=== PATIENT | female | born 1970 | race Asian ===

== ENCOUNTER 2017-09-07 22:00 | Emergency (ER) | payer BC, OTHER ==
[2017-09-07] MEDS ORDERED: ASPIRIN 81 MG CHEWABLE TABLETS PO ONE (22:05)
--- NOTE | 2017-09-07 22:06 | PDOC ---
Rapid Medical Evaluation Chief Complaint: Chest Pain Time Seen by Provider: 09/07/17 22:06 Medical Evaluation: Allergies Allergy/AdvReac Type Severity Reaction Status Date / Time kiwi Allergy Swelling Verified 11/24/14 12:24 pineapple Allergy Swelling Verified 11/24/14 12:24 09/07/17 22:04 c/o chest pain x 40 mins. pain radiating to neck and throat. history of mitral valve prolapse PE: Patient alert ox3. A: chest paIN P; cbc cmp cardiac chest PA and lateral patient to the ER for further management of care. Discharge Disposition - Referrals Referrals: Jamshid Laureano MD [Primary Care Provider] - - Patient Instructions - Post Discharge Activity
[2017-09-07 22:07] VITALS: TEMP 98.2; BMI 24.1
--- NOTE | 2017-09-07 22:17 | PDOC ---
History of Present Illness - General Chief Complaint: Chest Pain Stated Complaint: CHEST PAIN Time Seen by Provider: 09/07/17 22:06 - History of Present Illness Initial Comments: 47 year old female with history of MVP presenting with chest pain since 14:00 today. States that the pain is an intermittent tightness, non-exertional, radiates to her neck bilaterally, and is relieved by a deep breath. She has never had this pressure before. She denies nausea, vomiting, diarrhea, constipation, SOB, headache, or other symptoms. Her PCP is affiliated with [facility] and her ethanol maintenance mechanic is Dr. Saul May. 09/07/17 23:08 Past History - Past Medical History Allergies/Adverse Reactions: Allergies Allergy/AdvReac Type Severity Reaction Status Date / Time kiwi Allergy Swelling Verified 09/07/17 22:07 pineapple Allergy Swelling Verified 09/07/17 22:07 Home Medications: Ambulatory Orders Famotidine [Pepcid -] 20 mg PO DAILY #14 tablet 09/08/17 COPD: No - Suicide/Smoking/Psychosocial Hx Smoking History: Never smoked Have you smoked in the past 12 months: No Information on smoking cessation initiated: No Hx Alcohol Use: No Drug/Substance Use Hx: No Substance Use Type: None Review of Systems - Review of Systems Constitutional: No: Chills, Diaphoresis, Fever HEENTM: No: Blurred Vision, Recent change in vision, Double Vision Respiratory: No: Cough, Shortness of Breath, Wheezing Cardiac (ROS): Yes: Chest Tightness. No: Irregular Heart Rate, Lightheadedness , Palpitations, Syncope ABD/GI: No: Constipated, Diarrhea, Nausea, Vomiting : No: Burning, Dysuria, Discharge, Incontinence Musculoskeletal: No: Muscle Pain, Muscle Weakness Integumentary: No: Bruising, Erythema, Flushing, Lesions Neurological: No: Headache, Numbness, Paresthesia *Physical Exam - Vital Signs Last Vital Signs Temp Pulse Resp BP Pulse Ox 98.2 F 105 H 18 139/88 100 09/07/17 22:05 09/07/17 22:05 09/07/17 22:05 09/07/17 22:05 09/07/17 22:05 - Physical Exam General Appearance: Yes: Nourished, Appropriately Dressed. No: Apparent Distress HEENT: positive: EOMI, RUSS, Normal ENT Inspection, Normal Voice Neck: positive: Trachea midline, Normal Thyroid, Supple. negative: Tender, Rigid Respiratory/Chest: positive: Lungs Clear, Normal Breath Sounds. negative: Chest Tender, Respiratory Distress, Accessory Muscle Use Cardiovascular: positive: Regular Rhythm, Regular Rate Gastrointestinal/Abdominal: positive: Normal Bowel Sounds, Flat, Soft. negative : Tender Lymphatic: positive: Tenderness. negative: Adenopathy Musculoskeletal: positive: Normal Inspection. negative: Decreased Range of Motion Extremity: positive: Normal Capillary Refill, Normal Inspection, Pelvis Stable. negative: Normal Range of Motion, Tender Integumentary: positive: Normal Color, Dry, Warm Neurologic: positive: chapter relations administrator II-XII NML intact, Fully Oriented, Alert, Normal Mood/ Affect, Normal Response, Motor Strength 07/22 ED Treatment Course - LABORATORY CBC & Chemistry Diagram: 09/07/17 23:20 09/07/17 23:20 Medical Decision Making - Medical Decision Making 47 year old female with PMH of MVP presenting with chest pain with sour taste in her mouth. Less likely cardiac related but given history will have to rule out with troponin x 2. Patient signed out to Dr. Luu for continued cardiac monitoring and blood work. *DC/Admit/Observation/Transfer Diagnosis at time of Disposition: Atypical chest pain - Discharge Dispostion Disposition: HOME Condition at time of disposition: Stable - Prescriptions Prescriptions: Famotidine [Pepcid -] 20 mg PO DAILY #14 tablet - Referrals Referrals: Saul May MD [Staff Physician] - Fabrizio Guallpa MD [Staff Physician] - Jamshid Laureano MD [Primary Care Provider] - - Patient Instructions Printed Discharge Instructions: DI for Chest Pain Additional Instructions: Please make an appointment to see your PMD. Please also follow up with the ethanol maintenance mechanic and the podiatry doctor. Please return to the ED with any further concerns or complaints. - Post Discharge Activity
[2017-09-07] MEDS ORDERED: MAG HYDROX/AL HYDROX/SIMETH 30 ML UNIT-DOSE CUP PO ONE (23:09)
[2017-09-07] MEDS ORDERED: FAMOTIDINE 20 MG/50 ML IVPB 20 MG/50 ML MG IVPB ONE ×2 (23:09→23:14)
[2017-09-07] MEDS ORDERED: ASPIRIN 81 MG CHEWABLE TABLETS ONE (23:14)
[2017-09-07] MEDS ORDERED: MAG HYDROX/AL HYDROX/SIMETH 30 ML UNIT-DOSE CUP ONE (23:14)
[2017-09-07 23:27] LABS: BASO % 0.8 % (0-2.0); HEMATOCRIT 38.1 % (32.4-45.2); HEMOGLOBIN 12.7 GM/dL (10.7-15.3); LYMPH % 26.5 % (8-40); MCH 28.1 pg (25.7-33.7); MCHC 33.3 g/dl (32.0-36.0); MEAN CELL VOLUME 84.4 fl (80-96); MEAN PLT VOLUME 8.7 fl (7.5-11.1); MONO % 6.3 % (3.8-10.2); NEUT % 62.4 % (42.8-82.8); PLATELET COUNT 274 K/MM3 (134-434); RBC 4.51 M/mm3 (3.60-5.2); RDW 13.4 % (11.6-15.6); WHITE BLOOD COUNT 7.2 K/mm3 (4.0-10.0)
[2017-09-07 23:45] LABS: INR 0.92 (0.82-1.09); PROTHROMBIN TIME (PATIENT) 10.4 SEC (9.7-13.0)
[2017-09-07 23:55] LABS: ALBUMIN 3.4 g/dl (3.4-5.0); ANION GAP 8 (8-16); BILIRUBIN,TOTAL 0.2 mg/dL (0.2-1.0); BLOOD UREA NITROGEN 15 mg/dL (7-18); CALCIUM 8.7 mg/dL (8.5-10.1); CHLORIDE 105 mmol/L (98-107); CO2 26 mmol/L (21-32); CREATININE 0.8 mg/dL (0.55-1.02); GLUCOSE,RANDOM 112 mg/dL (74-106); MAGNESIUM 1.9 mg/dL (1.8-2.4); POTASSIUM 4.4 mmol/L (3.5-5.1); SGOT/AST 12 U/L (15-37); SGPT/ALT 25 U/L (12-78); SODIUM 139 mmol/L (136-145); TOT PROT 7.5 g/dl (6.4-8.2)
[2017-09-07 23:57] LABS: ALK PHOS 69 U/L (45-117)
--- NOTE | 2017-09-08 00:23 | PDOC ---
Attending Attestation - HPI HPI: 09/08/17 00:33 The patient is a 47 year old female with a significant PMH of mitral valve prolapse who presents to the emergency department with chest discomfort since 9 :00 PM today. The patient states the chest discomfort is intermittent with an associated sour taste in her mouth and a burning sensation that goes up her throat. The patient denies eating anything prior to the onset of her chest discomfort. Patient denies having similar chest discomfort in the past. The patient denies shortness of breath, chest pain, diaphoresis, headache, dizziness, leg swelling or calf pain. Denies fever, chills, nausea, vomit, diarrhea and constipation. Denies dysuria, frequency, urgency and hematuria. Allergies: NKA Past surgical history: None reported. Social history: No reported alcohol, drug, or cigarette use. PCP: Dr. Wyman Kitchen Work Supervisor: Dr. May - Physicial Exam PE: 09/08/17 00:34 ADULT PHYSICAL EXAM Constitutional: Awake, alert, oriented. No acute distress. Head: Normocephalic. Atraumatic Eyes: PERRL. EOMI. Conjunctivae are not pale. ENT: Mucous membranes are moist and intact. Posterior pharynx without exudates or erythema. Uvula midline. Neck: Supple. Full ROM. No lymphadenopathy. Cardiovascular: Regular rate. Regular rhythm. S1, S2 regular. Distal pulses are 2+ and symmetric. Pulmonary/Chest: No evidence of respiratory distress. Clear to auscultation bilaterally No wheezing, rales or rhonchi. Abdominal: Soft and non-distended. There is no tenderness. No rebound, guarding or rigidity. No organomegaly. No palpable masses. Good bowel sounds. Back: No CVA tenderness. Musculoskeletal: No edema. No cyanosis. No clubbing. Full range of motion in all extremities. Nocalf tenderness. Radial/pedal pulses are intact and 2+ bilaterally Skin: Skin is warm and dry. No petechiae. No purpura. Neurological: Alert and oriented to person, place, and time. Cranial nerves II -XII are grossly intact. Normal speech. Strength is grossly symmetric. No sensory deficits. Psychiatric: Good eye contact. Normal interaction, affect and behavior. <Kristi Seals - Last Filed: 09/08/17 00:33> - Resident Resident Name: Corry Mejias - ED Attending Attestation I have performed the following: I have examined & evaluated the patient, The case was reviewed & discussed with the resident, I agree w/resident's findings & plan, Exceptions are as noted - Medical Decision Making 09/08/17 00:23 I, Dr. Brittney Luu, DO, attest that this document has been prepared under my direction and personally reviewed by me in its entirety. I further attest, that it accurately reflects all work, treatment, procedures and medical decision -making performed by me. 09/08/17 00:31 a/p: 47yo female with cp that radiates up her chest to her throat -burning sensation/tightness/assoc with sour taste in mouth -pt tachy upon arrival -no pleuritic component -no calf ttp or leg swelling -will send labs, ekg, tsh, cxr -will monitor and reassess -will medicate 09/08/17 00:35 pt with elevated TSH - will send free t4 pain improved at this time will repeat trop 09/08/17 01:56 cxr clear discussed imaging results will repeat trop at 230a 09/08/17 01:56 free t4 wnl pt will be signed out to the oncoming ED physician pending repeat trop <Brittney Luu - Last Filed: 09/08/17 02:02> Discharge Disposition <Kristi Seals - Last Filed: 09/08/17 00:33> - Discharge Dispostion Decision to Admit order: No <Brittney Luu - Last Filed: 09/08/17 02:02> - Diagnosis Atypical chest pain - Discharge Dispostion Condition at time of disposition: Stable - Prescriptions Prescriptions: Famotidine [Pepcid -] 20 mg PO DAILY #14 tablet - Referrals Referrals: Fabrizio Guallpa MD [Staff Physician] - Jamshid Laureano MD [Primary Care Provider] - Saul May MD [Staff Physician] - - Patient Instructions Printed Discharge Instructions: DI for Chest Pain Additional Instructions: Please make an appointment to see your PMD. Please also follow up with the research associate policy and the operations scheduler. Please return to the ED with any further concerns or complaints. - Post Discharge Activity Heart Score/ECG Review - ECG Intrepretation Comment:: 09/08/17 00:31 sinus at 98, nl axis, nl interval, no acute st/t wave findings <Brittney Luu - Last Filed: 09/08/17 02:02>
[2017-09-08] MEDS ORDERED: ACETAMINOPHEN 325 MG TABLET (FP) PO ONE (01:58)
[2017-09-08] MEDS ORDERED: ACETAMINOPHEN 325 MG TABLET (FP) ONE (02:03)
[2017-09-08 03:15] VITALS: BP 132/79; PULSE 80
--- NOTE | 2017-09-11 22:08 | EKG ---
Test Reason : Blood Pressure : / mmHG Vent. Rate : 098 BPM Atrial Rate : 098 BPM P-R Int : 146 ms QRS Dur : 078 ms QT Int : 342 ms P-R-T Axes : 065 063 053 degrees QTc Int : 436 ms NORMAL SINUS RHYTHM LOW VOLTAGE QRS BORDERLINE ECG WHEN COMPARED WITH ECG OF 24-NOV-2014 12:38, NO SIGNIFICANT CHANGE WAS FOUND Confirmed by WARNER CISNEROS MD ([id number]) on 09/11/2017 10:08:31 PM Referred By: Confirmed By:WARNER CISNEROS MD
== END 2017-09-08 03:15 | disposition home or self-care (01) ==
LOC: JER 22:00
PROC: 3E033GC Introduction of Other Therapeutic Substance into Peripheral Vein, Percutaneous Approach (ICD-10-PCS; principal; 2017-09-07)
DX: R07.89 Other chest pain (principal); I34.1 Nonrheumatic mitral (valve) prolapse
CPT/HCPCS: 36415; 71046-TC-FY; 80053; 82550; 83735; 84439; 84443; 84484; 85025; 85610; 93005; 93010; 99283-25

== ENCOUNTER 2018-06-13 05:05 | Inpatient (IN) | payer BC ==
[2018-06-12 10:20] VITALS: BMI 23.3
[2018-06-13] MEDS ORDERED: BUPIVACAINE HCL/PF 0.5% (5MG/ML) 10 ML VIAL ONE (07:38)
--- NOTE | 2018-06-13 07:54 | HP ---
History & Physical Update - Physical Physical: No Change - Assessment Assessment: No Change - Plan Plan: No Change (H&P reviwed , no changes, for supracervical abdominal hysterectomy, bilatearl salpingectomy)
[2018-06-13] MEDS ORDERED: MIDAZOLAM HCL 2 MG/2 ML SINGLE DOSE VIAL ONE ×3 (08:40→08:48)
[2018-06-13] MEDS ORDERED: DEXAMETHASONE SOD PHOSPHATE 4 MG/1 ML VIAL ONE ×2 (08:55→09:42)
[2018-06-13] MEDS ORDERED: LIDOCAINE HCL/PF 2% SDV 5ML VIAL ONE ×2 (08:55→09:42)
[2018-06-13] MEDS ORDERED: PROPOFOL 20 ML ONE ×3 (08:56→09:43)
[2018-06-13] MEDS ORDERED: ROCURONIUM BROMIDE 50 MG/5 ML VIAL ONE ×2 (08:56→09:43)
[2018-06-13] MEDS ORDERED: ceFAZolin SODIUM 1 GM VIAL IVPB ONE (09:25)
[2018-06-13] MEDS ORDERED: ceFAZolin SODIUM 1 GM VIAL ONE ×2 (09:34→09:46)
[2018-06-13] MEDS ORDERED: KETOROLAC TROMETHAMINE 30 MG/1 ML VIAL ONE ×2 (09:42→09:46)
[2018-06-13] MEDS ORDERED: NEOSTIGMINE METHYLSULFATE 0.5 MG/ML - 10 ML MDV ONE (09:44)
[2018-06-13] MEDS ORDERED: PHENYLEPHRINE HCL 10 MG/1 ML SINGLE DOSE VIAL ONE (09:44)
[2018-06-13] MEDS ORDERED: GLYCOPYRROLATE 0.2 MG/1 ML VIAL ONE (09:45)
[2018-06-13] MEDS ORDERED: SODIUM CHLORIDE 0.9% P/F 10 ML VIAL IJ ONE (09:46)
[2018-06-13] MEDS ORDERED: oxyCODONE HCL 5 MG TABLET PO PRN ×2 (11:12→11:17)
[2018-06-13] MEDS ORDERED: IBUPROFEN 800 MG/8 ML IJ IVPB PRN (11:12)
[2018-06-13] MEDS ORDERED: IBUPROFEN 600 MG TABLET (FP) PO PRN (11:12)
[2018-06-13] MEDS ORDERED: ELECTROLYTE-148 SOLN 1,000 ML IV SCH (11:15)
[2018-06-13] MEDS ORDERED: BISACODYL 10 MG SUPP.RECT RC PRN (11:15)
[2018-06-13] MEDS ORDERED: ONDANSETRON 4 MG/2 ML VIAL IVPUSH PRN (11:25)
[2018-06-13] MEDS ORDERED: DESFLURANE GAS 240 ML BOTTLE IH ONE (11:29)
[2018-06-13] MEDS ORDERED: OXYTOCIN 15 UNITS/ LR 250 ML 250 ML IVPB SCH (11:30)
[2018-06-13] MEDS ORDERED: LACTATED RINGERS SOLUTION 1,000 ML IV SCH (11:30)
--- NOTE | 2018-06-13 12:37 | OP ---
DATE OF OPERATION: 06/13/2018 PREOPERATIVE DIAGNOSIS: Menometrorrhagia, pelvic pain, fibroid uterus. POSTOPERATIVE DIAGNOSIS: Menometrorrhagia, pelvic pain, fibroid uterus. PROCEDURE: Supracervical abdominal hysterectomy, bilateral salpingectomy, and right ovarian cystectomy. SURGEON: eLnny Thompson M.D. PAINTING WORKER: Eamon Scott M.D. ANESTHESIA: General. ANESTHESIOLOGIST: Marcio Bocanegra M.D. ESTIMATED BLOOD LOSS: 150 mL. DESCRIPTION OF THE PROCEDURE: The patient was taken to the operating room under adequate general anesthesia. In the supine position the abdomen and perineum were prepped and draped and a Pfannenstiel abdominal skin incision was made. The abdominal wall was cut layer by layer until the peritoneum was exposed and incised. Upon entering the abdominal cavity the lower uterine segment was identified and the upper abdomen was checked. Bowels were packed away. The uterus was enlarged with multiple myomas and bulky. The bladder was normal and the right ovary had a 3-cm corpus luteum cyst which was oozing. At this time a Tiff clamp was applied at the base of the cyst and then with the cautery the cyst was removed and then the ovary was sutured with 3-0 Vicryl interrupted suture. Hemostasis was established then. Both of the tubes were normal, ovaries were normal, bladder was normal, and the cul-de-sac was free of adhesions. The round ligament was grasped with a bipolar LigaSure cautery cauterized and cut until the leaf of the broad ligament was opened and the bladder was pushed down. Then after the pedicles were identified and clamped with a Kaveh clamp and cut and the clamp replaced with 0-Vicryl ties bilaterally. At this time the bladder was further pushed down. The uterine artery was identified bilaterally, and clamped with Kaveh clamp, cut, and the clamp replaced 0 Vicryl suture bilaterally. The paracervical area was clamped with Kaveh clamp, cut, and the clamp replaced with 0 Vicryl suture bilaterally. Then the specimen was removed above the cervix and then the cervix was sutured with an interrupted suture of 0 Vicryl suture. Then reperitonealization of the appendix floor was done with 3-0 Vicryl continuous suture. The pelvic cavity was then irrigated and no active bleeding was seen. Both ovaries were checked and were normal. Then all the lap, sponge, and instrument counts were correct. Urine was clear. Then the peritoneum was closed with 0 Vicryl continuous suture. The muscles were brought together with an interrupted suture of 0 Vicryl, the fascia was closed with 0 Vicryl continuous sutures, the subcutaneous fat with interrupted suture of 0 Vicryl, and the skin was closed with 4-0 Biosyn subcuticular continuous suture. The patient tolerated the procedure well and left the OR in good condition. Fermín [id number]
[2018-06-13] MEDS ORDERED: ACETAMINOPHEN 1000 MG/100 ML VIAL (NON FORMULARY) IVPB ONE (12:38)
[2018-06-13] MEDS ORDERED: HYDROmorphone *PCA* 10MG/50ML DISP.SYRIN PCA ONE (12:38)
[2018-06-13] MEDS ORDERED: HYDROmorphone *PCA* 10MG/50ML DISP.SYRIN PCA SCH (12:45)
[2018-06-13] MEDS: DEXTROSE 5%-LACTATED RINGERS 1,000 ML IV SCH (16:00)
[2018-06-13] MEDS: ONDANSETRON 4 MG/2 ML VIAL IVPUSH PRN (16:58)
[2018-06-13] MEDS: CEFAZOLIN 1 GM/D5W 1 GM/50 ML BAG IVPB SCH (17:42)
[2018-06-14] MEDS: CEFAZOLIN 1 GM/D5W 1 GM/50 ML BAG IVPB SCH ×2 (01:12→09:04)
[2018-06-14] MEDS: DEXTROSE 5%-LACTATED RINGERS 1,000 ML IV SCH ×3 (01:16→17:30)
[2018-06-14] MEDS: ONDANSETRON 4 MG/2 ML VIAL IVPUSH PRN ×2 (04:09→10:23)
[2018-06-14 07:55] LABS: ANION GAP 6 MMOL/L (8-16); BLOOD UREA NITROGEN 9 mg/dL (7-18); CALCIUM 7.3 mg/dL (8.5-10.1); CHLORIDE 103 mmol/L (98-107); CO2 28 mmol/L (21-32); CREATININE 0.6 mg/dL (0.55-1.3); GLUCOSE,RANDOM 127 mg/dL (74-106); POTASSIUM 4.1 mmol/L (3.5-5.1); SODIUM 138 mmol/L (136-145)
[2018-06-14 08:02] LABS: BASO % 0.1 % (0-2.0); EOS % 0.1 % (0-4.5); HEMATOCRIT 31.9 % (32.4-45.2); HEMOGLOBIN 10.4 GM/dL (10.7-15.3); LYMPH % 7.2 % (8-40); MCH 27.3 pg (25.7-33.7); MCHC 32.6 g/dl (32.0-36.0); MEAN CELL VOLUME 83.7 fl (80-96); MONO % 6.8 % (3.8-10.2); NEUT % 85.8 % (42.8-82.8); PLATELET COUNT 199 K/MM3 (134-434); RBC 3.81 M/mm3 (3.60-5.2); RDW 13.8 % (11.6-15.6)
[2018-06-14] MEDS ORDERED: ACETAMINOPHEN 325 MG TABLET (FP) PO PRN (08:11)
[2018-06-14] MEDS ORDERED: SIMETHICONE 80 MG TAB.CHEW (FP) PO PRN (08:12)
--- NOTE | 2018-06-14 08:35 | PN ---
Progress Note (short form) - Note Progress Note: pod 1, s/p supracervical abdominal hysterectomy, had one episode of vomiting last night, feels fine now CBC, BMP 06/14/18 06:30 06/14/18 06:30 Last Vital Signs Temp Pulse Resp BP Pulse Ox 98.4 F 106 H 20 125/72 100 06/14/18 06:00 06/14/18 06:00 06/14/18 06:00 06/14/18 06:00 06/14/18 07:40 abdomen soft , no distension, no cva BS are present no calf tenderness impression pod 1, stable plan ambulate, advance diet pain management
[2018-06-14] MEDS ORDERED: ENOXAPARIN NA (PORCINE) 40 MG/0.4 ML DISP.SYRIN SQ SCH (10:00)
[2018-06-14] MEDS ORDERED: PCA PUMP KEY 1 EACH EACH ONE (10:05)
--- NOTE | 2018-06-15 08:04 | DS ---
Physical Exam-BREAD MOLDER Vital Signs: Vital Signs Temperature 98.5 F 06/14/18 22:00 Pulse Rate 106 H 06/14/18 22:00 Respiratory Rate 20 06/14/18 22:00 Blood Pressure 132/73 06/14/18 22:00 O2 Sat by Pulse Oximetry (%) 100 06/14/18 22:00 Constitutional: Yes: Well Nourished, No Distress, Calm Eyes: Yes: WNL, Conjunctiva Clear, EOM Intact HENT: Yes: WNL, Atraumatic, Normocephalic Neck: Yes: WNL, Supple, Trachea Midline Cardiovascular: Yes: WNL, Regular Rate and Rhythm Respiratory: Yes: WNL, Regular, CTA Bilaterally Gastrointestinal: Yes: WNL ...Rectal Exam: Yes: WNL Renal/: Yes: WNL Pelvis: Yes: WNL Breast(s): Yes: WNL Musculoskeletal: Yes: WNL Extremities: Yes: WNL Edema: No Integumentary: Yes: WNL Wound/Incision: Yes: Clean/Dry, Well Approximated, Sutures Intact Neurological: Yes: WNL, Alert, Oriented ...Motor Strength: WNL Psychiatric: Yes: WNL, Alert, Oriented Labs: CBC, BMP 06/14/18 06:30 06/14/18 06:30 Discharge Summary Reason For Visit: LEIOMYOMA OF UTERUS/IRREGULAR MENSTRUATION/ Procedures: Principal: supracervical abdominal hysterectomy Other Procedures: bilateral salpingectomy. RT ovarian cystectomy Condition: Good - Instructions Diet, Activity, Other Instructions: REGULAR DIET, FOLLOW UP OFFICE 2 WEEKS, IF FEVER, HEAVY VAGINAL BLEEDING, SEVERE PAIN CALL Referrals: Lenny Thompson MD [Staff Physician] - Disposition: HOME - Home Medications Comprehensive Discharge Medication List: Ambulatory Orders Ibuprofen [Motrin -] 600 mg PO QID #28 tablet 06/14/18
[2018-06-15 09:52] VITALS: BP 102/65; PULSE 88; TEMP 98.3
--- NOTE | 2018-06-15 12:29 | PATH ---
Surgical Pathology Report Patient Name: SHALONDA SINGH [facility]. Rec. #: [id number] /Age/Gender: 1970 (Age: 47) / F Account: [id number] Location: [facility] OBS/CUSTOMER SERVICE PROFESSIONAL Taken: 06/13/2018 Received: 06/13/2018 Reported: 06/15/2018 Physicians: Lenny Thompson M.D. Specimen(s) Received A: RIGHT AND LEFT FALLOPIAN TUBE, UTERUS B: CORPUS LUTEUM CYST RIGHT OVARY Clinical History Leiomyoma of uterus, menorrhagia Final Diagnosis A. UTERUS AND BILATERAL FALLOPIAN TUBES, SUPRACERVICAL HYSTERECTOMY AND BILATERAL SALPINGECTOMY: UTERUS, 140 GRAMS, WITH LEIOMYOMATA, AND PROLIFERATIVE ENDOMETRIUM. BENIGN BILATERAL FALLOPIAN TUBES PRESENT. B. RIGHT OVARIAN CYST, EXCISION: BENIGN LUTEAL CYST. Electronically Signed Agapito Nunez M.D. Gross Description A. Received in formalin labeled "right fallopian tube, left fallopian tube and uterus," is a 140 g supracervically amputated uterus with one attached (presumably left) fallopian tube. The presumed right fallopian tube is separately received within the same container. The specimen measures 8 cm from left to right, 7 cm from superior to inferior and 5 cm from anterior to posterior. The serosa is lobo-marin with focal bulging serosal nodules. The endometrial cavity measures 4 cm in length and 2.8 cm from cornu to cornu. The endometrium is lobo-brown in average is 0.2 cm in thickness. The myometrium displays abundant intramural nodules, measuring up to 1.8 cm in greatest dimension. The cut surface of the nodules is lobo and rubbery with whorled architecture. No areas of hemorrhage or necrosis are identified. The remaining myometrium is lobo and averages 2.1 cm in thickness. The left fimbriated fallopian tube measures 6 cm in length. The outer surface is lobo-baca and smooth. Sectioning reveals an unremarkable lumen. The right fimbriated fallopian tube measures 5 cm in length. The outer surface is lobo-baca and smooth. Sectioning reveals unremarkable lumen. Pulp Grinder sections are submitted in 13 cassettes as follows: 1-cervical stump margin of resection; 9-7-mvaboycw endomyometrium; 2-1-bwjbdcqdu endomyometrium; 6-subserosal nodules; 8-1-wymaxbqgot nodules; 10-left fallopian tube fimbria; 11-cross sections of left fallopian tube; 12-right fallopian tube fimbria; 13- cross section of right fallopian tube. B. Received in formalin labeled "corpus luteum cyst right ovary," is a 1.8 x 1.5 x 0.9 cm lobo-brown, focally disrupted cystic structure. Sectioning reveals brown, hemorrhagic parenchyma. The specimen is serially sectioned and entirely submitted in 2 cassettes. 06/14/2018 [facility]06/14/2018
== END 2018-06-15 12:02 | disposition home or self-care (01) | DRG 743 ==
LOC: JSAMEDAYSX 05:05 → J3W 13:46
PROVIDERS: ADMIT Obstetrics & Gynecology; ATTEND Obstetrics & Gynecology
PROC: 0UT70ZZ Resection of Bilateral Fallopian Tubes, Open Approach (ICD-10-PCS; 2018-06-13)
PROC: 0UB00ZZ Excision of Right Ovary, Open Approach (ICD-10-PCS; 2018-06-13)
PROC: 0UT90ZL Resection of Uterus, Supracervical, Open Approach (ICD-10-PCS; principal; 2018-06-13 09:00)
DX: D25.9 Leiomyoma of uterus, unspecified (principal); N83.11 Corpus luteum cyst of right ovary; N92.1 Excessive and frequent menstruation with irregular cycle; R10.2 Pelvic and perineal pain
CPT/HCPCS: 36415; 80048; 84703; 85025; 86850; 86900; 86901; 88305-TC; 88307-TC; 94010; 94760; J0131

== ENCOUNTER 2022-04-13 08:35 | Emergency (ER) | payer BC ==
[2022-04-13 08:44] VITALS: BMI 23.6
[2022-04-13] MEDS ORDERED: SODIUM CHLORIDE 0.9% 1000 ML INFUS.BAG IV ONE (09:40)
[2022-04-13 10:37] LABS: BASO % 0.5 % (0-2.0); EOS % 1.6 % (0-4.5); HEMATOCRIT 42.3 % (32.4-45.2); HEMOGLOBIN 13.9 GM/dL (10.7-15.3); LYMPH % 21.2 % (8-40); MCH 27.6 pg (25.7-33.7); MEAN CELL VOLUME 83.7 fl (80-96); MEAN PLT VOLUME 9.2 fl (7.5-11.1); MONO % 7.2 % (3.8-10.2); NEUT % 69.5 % (42.8-82.8); PLATELET COUNT 312 10^3/uL (134-434); RBC 5.05 M/mm3 (3.60-5.2); RDW 13.7 % (11.6-15.6); WHITE BLOOD COUNT 7.4 K/mm3 (4.0-10.0)
[2022-04-13 11:05] LABS: CALCIUM 9.4 mg/dL (8.5-10.1)
[2022-04-13 11:06] LABS: ALBUMIN 3.4 g/dl (3.4-5.0); BLOOD UREA NITROGEN 18.6 mg/dL (7-18)
[2022-04-13 11:09] LABS: CREATININE 0.8 mg/dL (0.55-1.3)
[2022-04-13 11:10] LABS: BILIRUBIN,TOTAL 0.3 mg/dL (0.2-1)
[2022-04-13 11:11] LABS: TOT PROT 7.6 g/dl (6.4-8.2)
[2022-04-13 11:14] LABS: N-TERMINAL BNP 44.6 pg/ml (5-125)
[2022-04-13 11:23] LABS: INR 0.92 (0.83-1.09); PROTHROMBIN TIME (PATIENT) 10.6 SEC (9.7-13.0)
[2022-04-13 16:07] VITALS: BP 126/86; PULSE 96; RESP 16; TEMP 98.1
== END 2022-04-13 16:10 | disposition home or self-care (01) ==
LOC: JER 08:35
DX: R00.2 Palpitations (principal)
CPT/HCPCS: 0241U-QW; 36415; 71046-TC-FY; 80053; 83880; 84443; 84484; 85025; 85379; 85610; 93005; 93010; 93308; 99285-25

== ENCOUNTER 2023-11-10 04:20 | Day surgery (SDC) | payer BC ==
[2023-11-09 12:12] VITALS: BMI 25.9
[2023-11-10 08:44] VITALS: RESP 18
[2023-11-10 11:35] VITALS: BP 114/73; PULSE 81; TEMP 97.8
== END 2023-11-10 11:33 | disposition home or self-care (01) ==
LOC: JASU-ENDO 04:20
PROVIDERS: ATTEND Internal Medicine Gastroenterology
PROC: 0DJD8ZZ Inspection of Lower Intestinal Tract, Via Natural or Artificial Opening Endoscopic (ICD-10-PCS; principal; 2023-11-10 10:00)
DX: Z12.11 Encounter for screening for malignant neoplasm of colon (principal); K63.89 Other specified diseases of intestine; K64.8 Other hemorrhoids; I10 Essential (primary) hypertension